=== PATIENT | male | born 1965 | race Caucasian/White ===

== ENCOUNTER 2017-05-26 13:14 | Day surgery (SDC) | payer MEDICARE, OTHER ==
[2017-05-26 14:56] LABS: INR 1.14; PROTIME 14.8 Sec (11.9-14.9); PT RATIO 1.2
[2017-05-26 14:57] LABS: PARTIAL THROMBOPLASTIN TIME 34.2 Sec (25.0-35.0)
[2017-05-26] MEDS ORDERED: LACTATED RINGER'S 1,000 ML IV* (15:00)
[2017-05-26 15:13] LABS: POTASSIUM 5.1 mmol/L (3.5-5.1)
[2017-05-26] MEDS ORDERED: MIDAZOLAM 1 MG/ML 2 ML INJ ×2 (15:26→19:46)
[2017-05-26] MEDS ORDERED: PROPOFOL 0 ML (15:26)
[2017-05-26] MEDS ORDERED: FENTAnyl 50 MCG/ML VIAL (15:26)
[2017-05-26] MEDS ORDERED: ROPIVACAINE 0.2% 20 ML VIAL (15:26)
[2017-05-26] MEDS: INSULIN ASPART [NOVOLOG] 3 ML PEN SC ×4 (16:05→23:30)
[2017-05-26] MEDS ORDERED: CEFAZOLIN 1 GM INJ (22:28)
[2017-05-26] MEDS ORDERED: ETOMIDATE 20 MG INJ (22:28)
[2017-05-26] MEDS ORDERED: PROPOFOL 20 ML (22:28)
[2017-05-26] MEDS ORDERED: LIDOCAINE 2% (SDV) 5 ML INJ (22:28)
[2017-05-26] MEDS ORDERED: ROPIVACAINE 0.5 % 30 ML VIAL (22:29)
[2017-05-26] MEDS ORDERED: DIPHENHYDRAMINE 50 MG INJ IV (23:30)
[2017-05-26] MEDS ORDERED: FENTAnyl 50 MCG/ML VIAL IV (23:30)
[2017-05-26] MEDS ORDERED: DEXTROSE 50% 50 ML SYRINGE IV ×2 (23:30)
[2017-05-26] MEDS ORDERED: HYDROmorphONE (0.2 MG/ML) 10ML SYG IV ×2 (23:30)
[2017-05-26] MEDS ORDERED: NALOXONE (0.4 MG/ML) INJ IV (23:30)
[2017-05-26] MEDS ORDERED: METOCLOPRAMIDE 10 MG INJ IV (23:30)
[2017-05-26] MEDS ORDERED: ONDANSETRON 4 MG INJ IV (23:30)
[2017-05-26] MEDS ORDERED: GLUCOSE GEL 15 GRAM TUBE PO ×2 (23:30)
[2017-05-26] MEDS ORDERED: GLUCOSE GEL 15 GRAM TUBE BUCCAL (23:30)
[2017-05-26] MEDS ORDERED: GLUCAGON 1 MG INJ IM (23:30)
[2017-05-27] MEDS: OXYCODONE/ACETAMINOPHEN (10/325) TAB PO ×2 (01:51→06:35)
== END 2017-05-27 11:31 | disposition home or self-care (01) ==
LOC: SDS 13:14 → PP2 05-27 00:39 → SDS 05-27 11:31
DX: S52.301 Unspecified fracture of shaft of right radius (principal); T84.112A Breakdown (mechanical) of internal fixation device of bone of right forearm, initial encounter; X58.XXXD Exposure to other specified factors, subsequent encounter; E78.5 Hyperlipidemia, unspecified; E11.9 Type 2 diabetes mellitus without complications; I11.0 Hypertensive heart disease with heart failure; I50.9 Heart failure, unspecified; E66.01 Morbid (severe) obesity due to excess calories; Z68.41 Body mass index [BMI] 40.0-44.9, adult
CPT/HCPCS: 20680; 73110-RT; 82962; 84132; 85610; 85730; 87070; 88300

== ENCOUNTER → 2018-10-17 | Outpatient (CLI) | payer MEDICARE, OTHER | END | disposition home or self-care (01) | LOC: RAD 15:51 | DX: L97.429 Non-pressure chronic ulcer of left heel and midfoot with unspecified severity (principal) | CPT/HCPCS: 73650; 73650-LT ==

== ENCOUNTER 2018-12-15 14:54 | Day surgery (SDC) | payer MEDICARE, OTHER ==
[2018-12-15 16:19] LABS: ADD MAN DIFF? NO
[2018-12-15 16:22] LABS: BASOPHIL # 0.1 10^3/ul (0.0-0.1); BASOPHILS % 0.7 % (0.0-2.0); EOSINOPHILS # 0.1 10^3/ul (0.0-0.5); EOSINOPHILS % 1.9 % (0.0-7.0); HEMATOCRIT 37.7 % (42.0-52.0); LYMPHOCYTES # 1.2 10^3/ul (0.8-2.9); LYMPHOCYTES % 17.3 % (15.0-51.0); MEAN CORPUSCULAR HEMOGLOBIN 32.5 pg (29.0-33.0); MEAN CORPUSCULAR HGB CONC 31.8 g/dl (32.0-37.0); MEAN CORPUSCULAR VOLUME 102.2 fl (82.0-101.0); MEAN PLATELET VOLUME 9.9 fl (7.4-10.4); MONOCYTE # 0.4 10^3/ul (0.3-0.9); MONOCYTES % 5.8 % (0.0-11.0); NEUTROPHIL # 5.1 10^3/ul (1.6-7.5); PLATELET COUNT 164 10^3/UL (140-415); RED BLOOD COUNT 3.69 10^6/ul (4.70-6.10); RED CELL DISTRIBUTION WIDTH 14.1 % (11.5-14.5)
[2018-12-15 16:50] LABS: INR 1.22; PROTIME 15.5 Sec (11.9-14.9); PT RATIO 1.2
[2018-12-15 16:55] LABS: ALANINE AMINOTRANSFERASE 34 IU/L (13-69); ALBUMIN/GLOBULIN RATIO 0.97; ALKALINE PHOSPHATASE 72 IU/L (42-121); ANION GAP 13 (5-13); ASPARTATE AMINO TRANSFERASE 26 IU/L (15-46); BILIRUBIN,INDIRECT 0.2 mg/dl (0-1.1); BILIRUBIN,TOTAL 0.2 mg/dl (0.2-1.3); CALCIUM 9.2 mg/dl (8.4-10.2); CARBON DIOXIDE 27 mmol/L (21-31); CHLORIDE 95 mmol/L (97-110); Estimated GFR 12 mL/min (>60); GLUCOSE 323 mg/dl (70-220); SODIUM 135 mmol/L (135-144); TOTAL PROTEIN 8.1 g/dl (6.1-8.1)
[2018-12-15 17:01] LABS: BLOOD UREA NITROGEN 22 mg/dl (7-20); CREATININE 5.18 mg/dl (0.61-1.24)
[2018-12-15] MEDS ORDERED: CEFAZOLIN 1 GM INJ (17:50)
[2018-12-15] MEDS: POLYMYXIN/BACITRACIN 1L IRRIG (18:00)
[2018-12-15] MEDS ORDERED: FENTAnyl 50 MCG/ML VIAL (18:10)
[2018-12-15] MEDS ORDERED: MIDAZOLAM 1 MG/ML 2 ML INJ (18:10)
== END 2018-12-15 19:48 | disposition home or self-care (01) ==
LOC: SDS 14:54
DX: I70.244 Atherosclerosis of native arteries of left leg with ulceration of heel and midfoot (principal); I87.8 Other specified disorders of veins; L97.429 Non-pressure chronic ulcer of left heel and midfoot with unspecified severity; I13.2 Hypertensive heart and chronic kidney disease with heart failure and with stage 5 chronic kidney disease, or end stage renal disease; I50.9 Heart failure, unspecified; N18.6 End stage renal disease; Z99.2 Dependence on renal dialysis; E11.9 Type 2 diabetes mellitus without complications; Z79.82 Long term (current) use of aspirin; Z79.4 Long term (current) use of insulin; I70.201 Unspecified atherosclerosis of native arteries of extremities, right leg
CPT/HCPCS: 11042; 80053; 82962; 85025; 85610; 85730

== ENCOUNTER 2019-01-09 13:57 | Day surgery (SDC) | payer MEDICARE, OTHER ==
[2019-01-09] MEDS: INSULIN REGULAR, HUMAN 100 UNIT/1 ML 3ML VIAL SC ×2 (14:53→15:24)
[2019-01-09 14:54] LABS: ADD MAN DIFF? NO
[2019-01-09 14:57] LABS: WHITE BLOOD COUNT 7.3 10^3/ul (4.8-10.8)
[2019-01-09 14:57] LABS: BASOPHILS % 0.5 % (0.0-2.0); EOSINOPHILS # 0.1 10^3/ul (0.0-0.5); EOSINOPHILS % 1.8 % (0.0-7.0); HEMATOCRIT 39.8 % (42.0-52.0); HEMOGLOBIN 12.6 g/dl (14.0-18.0); LYMPHOCYTES # 1.3 10^3/ul (0.8-2.9); LYMPHOCYTES % 17.9 % (15.0-51.0); MEAN CORPUSCULAR HEMOGLOBIN 32.1 pg (29.0-33.0); MEAN CORPUSCULAR HGB CONC 31.7 g/dl (32.0-37.0); MEAN CORPUSCULAR VOLUME 101.3 fl (82.0-101.0); MEAN PLATELET VOLUME 10.6 fl (7.4-10.4); MONOCYTE # 0.4 10^3/ul (0.3-0.9); MONOCYTES % 5.5 % (0.0-11.0); NEUTROPHIL # 5.3 10^3/ul (1.6-7.5); NEUTROPHILS % 72.9 % (39.0-77.0); PLATELET COUNT 157 10^3/UL (140-415); RED BLOOD COUNT 3.93 10^6/ul (4.70-6.10); RED CELL DISTRIBUTION WIDTH 13.8 % (11.5-14.5)
[2019-01-09 15:18] LABS: INR 1.28; PROTIME 16.1 Sec (11.9-14.9); PT RATIO 1.3
[2019-01-09 15:19] LABS: PARTIAL THROMBOPLASTIN TIME 34.3 Sec (23.0-35.0)
[2019-01-09 15:23] LABS: ALANINE AMINOTRANSFERASE 28 IU/L (13-69); ALBUMIN 3.8 g/dl (3.3-4.9); ALBUMIN/GLOBULIN RATIO 0.95; ALKALINE PHOSPHATASE 65 IU/L (42-121); ANION GAP 14 (5-13); ASPARTATE AMINO TRANSFERASE 28 IU/L (15-46); BILIRUBIN,INDIRECT 0.1 mg/dl (0-1.1); BILIRUBIN,TOTAL 0.1 mg/dl (0.2-1.3); CALCIUM 9.3 mg/dl (8.4-10.2); CARBON DIOXIDE 25 mmol/L (21-31); CHLORIDE 96 mmol/L (97-110); Estimated GFR 7 mL/min (>60); GLUCOSE 333 mg/dl (70-220); TOTAL PROTEIN 7.8 g/dl (6.1-8.1)
[2019-01-09] MEDS ORDERED: GLUCOSE GEL 15 GRAM TUBE PO ×2 (15:30)
[2019-01-09] MEDS ORDERED: DEXTROSE 50% 50 ML SYRINGE IV ×2 (15:30)
[2019-01-09] MEDS ORDERED: GLUCAGON 1 MG INJ IM (15:30)
[2019-01-09] MEDS ORDERED: GLUCOSE GEL 15 GRAM TUBE BUCCAL (15:30)
[2019-01-09 15:52] LABS: SODIUM 135 mmol/L (135-144)
[2019-01-09 15:53] LABS: BLOOD UREA NITROGEN 43 mg/dl (7-20)
[2019-01-09 15:54] LABS: CREATININE 8.41 mg/dl (0.61-1.24); POTASSIUM 4.5 mmol/L (3.5-5.1)
[2019-01-09] MEDS ORDERED: LABETALOL HCL 20MG INJ IV (16:30)
[2019-01-09] MEDS ORDERED: OXYCODONE/ACETAMINOPHEN (5/325) TAB PO (16:30)
[2019-01-09] MEDS ORDERED: hydrALAzine 20 MG INJ IV (16:30)
[2019-01-09] MEDS ORDERED: EPHEDrine 25 MG/5 ML SYG IV (16:30)
[2019-01-09] MEDS ORDERED: HYDROmorphONE 1 MG/5 ML IV SYRINGE IV ×2 (16:30)
[2019-01-09] MEDS ORDERED: ONDANSETRON 4 MG INJ IV (16:30)
[2019-01-09] MEDS ORDERED: METOCLOPRAMIDE 10 MG INJ IV (16:30)
[2019-01-09] MEDS ORDERED: FENTAnyl 50 MCG/ML VIAL IV ×2 (16:30)
[2019-01-09] MEDS ORDERED: MIDAZOLAM 1 MG/ML 2 ML INJ (16:56)
[2019-01-09] MEDS ORDERED: FENTAnyl 50 MCG/ML VIAL (16:56)
[2019-01-09] MEDS ORDERED: METOCLOPRAMIDE 10 MG INJ (17:05)
[2019-01-09] MEDS ORDERED: CEFAZOLIN 1 GM INJ (17:05)
[2019-01-09] MEDS ORDERED: ONDANSETRON 4 MG INJ (17:05)
[2019-01-09] MEDS: POLYMYXIN/BACITRACIN 1L IRRIG (17:11)
== END 2019-01-09 19:24 | disposition home or self-care (01) ==
LOC: SDS 13:57
DX: I70.248 Atherosclerosis of native arteries of left leg with ulceration of other part of lower leg (principal); L97.829 Non-pressure chronic ulcer of other part of left lower leg with unspecified severity; I12.0 Hypertensive chronic kidney disease with stage 5 chronic kidney disease or end stage renal disease; N18.6 End stage renal disease; Z99.2 Dependence on renal dialysis; E11.9 Type 2 diabetes mellitus without complications; Z79.82 Long term (current) use of aspirin; Z79.4 Long term (current) use of insulin
CPT/HCPCS: 11042; 71045; 80053; 82962; 85025; 85610; 85730; 93005